=== PATIENT | male | born 1965 | race Caucasian/White ===

== ENCOUNTER 2019-11-08 13:40 | Emergency (ER) | payer OTHER ==
[~2019-11-08] VITALS: Ht 179.1 cm; Wt 75.0 kg
[2019-11-08 13:55] VITALS: BP 138/91
--- NOTE | 2019-11-08 15:47 | PHYS DOC ---
Past Medical History Past Medical History: Other Additional Past Medical Histor: PSORASIS (MYCHAL MONCADA APRN) Past Surgical History: Other Additional Past Surgical Histo: HERNIA REPAIR (MYCHAL MONCADA APRN) Smoking Status: Current Every Day Smoker Additional Information: 1.5PPD Alcohol Use: None (MYCHAL MONCADA APRN) General Adult EDM: Chief Complaint: CELLULITIS HPI: HPI: Patient is a 54 year old male who presents with complaints of a draining infection on his right elbow that started today. Patient reports noticing a bump on his right elbow approximately 4 days ago that slowly grew larger and started turning red and burst open today. Patient states that it burst open at approximately 10:00 this morning. Patient states his pain was about a 8 out of 10 before it burst open and since it has drained pus, the pain has come down to a 3-4/10. Patient denies injury to this elbow. Patient denies any fever chills, denies vision changes, denies any nasal congestion or sore throat. Patient denies any shortness of breath or recent cough. Patient denies any chest pain or peripheral swelling or edema. Patient denies any abdominal pain, nausea, vomiting, diarrhea, or blood in his stool. Patient denies any difficulties urinating, any increased urination, or any increased thirst. Patient denies any back or joint pains, rashes, headaches, focal weaknesses, or sensory changes. Patient denies any swelling of his glans, also denies any depressions anxieties or recent life changes. Patient states he smokes 1 pack cigarettes a day for the past 30 or more years. Patient denies drinking alcohol or doing illicit drugs. Patient denies taking anything for the pain of his right elbow or taken anything for the infection of his right elbow. (MYCHAL MONCADA APRN) Review of Systems: Review of Systems: Constitutional: Denies fever or chills. Eyes: Denies change in visual acuity. HENT: Denies nasal congestion or sore throat. Respiratory: Denies cough or shortness of breath. Cardiovascular: Denies chest pain or edema. GI: Denies abdominal pain, nausea, vomiting, bloody stools or diarrhea. : Denies dysuria. Musculoskeletal: Denies back pain or joint pain. Complains of pain to the right elbow. Integument: Denies rash. Complains of draining infection to right elbow. Neurologic: Denies headache, focal weakness or sensory changes. Endocrine: Denies polyuria or polydipsia. Lymphatic: Denies swollen glands. Psychiatric: Denies depression or anxiety. (MYCHAL MONCADA APRN) Heart Score: Risk Factors: Risk Factors: DM, Current or recent (<one month) smoker, HTN, HLP, family history of CAD, obesity. Risk Scores: Score 0 - 3: 2.5% MACE over next 6 weeks - Discharge Home Score 4 - 6: 20.3% MACE over next 6 weeks - Admit for Clinical Observation Score 7 - 10: 72.7% MACE over next 6 weeks - Early Invasive Strategies (MYCHAL MONCADA APRN) Family History: Family History: Patient denies any family history related to this ER visit today. (MYCHAL MONCADA APRN) Current Medications: Patient denies taking home medications. (MYCHAL MONCADA APRN) Allergies: Allergies: Patient denies allergies to medications. Allergies Coded Allergies Type Severity Reaction Last Updated Verified No Known Drug Allergies 11/08/19 No (MYCHAL MONCADA APRN) Physical Exam: PE: Constitutional: Well developed, well nourished, no acute distress, non-toxic appearance. HENT: Normocephalic, atraumatic, bilateral external ears normal, oropharynx moist, no oral exudates, nose normal. Eyes: PERRLA, EOMI, conjunctiva normal, no discharge. Pupils 4 mm Neck: Normal range of motion, no tenderness, supple, no stridor. Cardiovascular:Heart rate regular rhythm, no murmur heart sounds S1-S2, no abnormalities noted per auscultation. Lungs & Thorax: Bilateral breath sounds clear to auscultation all lung estrada. Abdomen: Bowel sounds normal all 4 quadrants, soft, no tenderness, no masses, no pulsatile masses. Skin: Warm, dry, no erythema, no rash to all areas except for the right elbow which is erythematous and has a draining abscess. Back: No tenderness, no CVA tenderness. Extremities: No tenderness to all extremities except for the right elbow, no cyanosis, no clubbing, ROM intact, no edema. Neurologic: Alert and oriented X 3, normal motor function, normal sensory function, no focal deficits noted. Psychologic: Affect normal, judgement normal, mood normal. (MYCHAL MONCADA APRN) Current Patient Data: Vital Signs: Vital Signs Date Time Temp Pulse Resp B/P (MAP) Pulse Ox O2 Delivery O2 Flow Rate FiO2 11/08/19 13:55 97.6 87 22 138/91 (107) 98 Room Air 97.6 (MYCHAL MONCADA APRN) EKG: EKG: [] (MYCHAL MONCADA APRN) Radiology/Procedures: Radiology/Procedures: [] (MYCHAL MONCADA APRN) Course & Med Decision Making: Course & Med Decision Making Pertinent Labs and Imaging studies reviewed. (See chart for details) 54-year-old male patient presents to the ER complaining of an infection to his right elbow for the past 4 days that started draining this morning approximately 10:00. Patient states it started out as a little bump on his elbow that was sore and progressively grew bigger until it burst open this morning and started draining out white purulent substance. Patient states he has never had an infection like this before. Patient states he does smoke a pack of cigarettes a day for greater than 30 years. Discussed importance of smoking cessation. Patient denies drinking or doing street drugs. Purulence from draining abscess was obtained per culture and sent to lab. Discussed with patient starting a regimen of antibiotics and being discharged to home. Patient rates his pain at a 4 out of 10 currently, patient states he does not feel as if he needs a prescription for pain medications, patient is amenable to discharge instructions home with prescription for an antibiotic. Discussed with patient the importance of taking the antibiotic as directed until is complete, return to ER concerns. Patient had no further questions. (MYCHAL MONCADA APRN) Dragon Disclaimer: Dragon Disclaimer: This electronic medical record was generated, in whole or in part, using a voice recognition dictation system. (MYCHAL MONCADA APRN) Departure Departure Impression: Primary Impression: Abscess Disposition: 01 HOME, SELF-CARE Condition: GOOD Referrals: NO PCP (PCP) Patient Instructions: Abscess Additional Instructions: TAKE MEDICATIONS PRESCRIBED, SEE YOUR DOCTOR SOON FOR RE-EVALUATION, RETURN TO THE ER IF SYMPTOMS WORSEN OR FOR OTHER CONCERNS. Scripts Sulfamethoxazole/Trimethoprim (BACTRIM DS TABLET) 1 Each Tablet 1 TAB PO BID for 7 Days, #14 TAB 0 Refills Prov: MYCHAL MONCADA APRN 11/08/19 Justicifation of Admission Dx: Justifications for Admission: Justification of Admission Dx: N/A (MYCHAL MONCADA APRN) Attending Signature Attending Signature I have reviewed the PA/TAX MANAGER's note and plan of care. I was available for consultation as needed during the patient's visit in the emergency department. I agree with the clinical impression, plan, and disposition. (MYCHAL MCKINNEY DO) MYCHAL MONCADA APRN Nov 08, 2019 15:47 MYCHAL MCKINNEY DO Nov 09, 2019 06:37
[2019-11-08] MEDS ORDERED: SULF1TAB24 PO (15:52)
== END 2019-11-08 15:57 | disposition home or self-care (01) ==
LOC: ER 13:40
DX: L02.511 Cutaneous abscess of right hand (principal); M25.521 Pain in right elbow; L40.9 Psoriasis, unspecified; F17.210 Nicotine dependence, cigarettes, uncomplicated; Z98.890 Other specified postprocedural states
CPT/HCPCS: 87071; 87075; 99283